=== PATIENT | female | born 1965 | race Asian ===

== ENCOUNTER 2019-07-15 12:25 | Emergency (ER) | payer MEDICAID ==
[~2019-07-15] VITALS: Ht 152.4 cm; Wt 49.4 kg
[~2019-07-15 12:25] MED LIST: ATOR20TA50 PO; CLOP75TA28 PO; ENAL10TA PO; FURO20TA3 PO; MET25T PO; POT10T PO; SILD20TA12; WARF5TAB PO
[2019-07-15 15:03] LABS: Basophils # (auto) 0.1 uL; Basophils % (auto) 1.2 % (0.0-2.0); Eosinophils # (auto) 0.3 uL; Eosinophils % (auto) 5.5 % (0.0-7.0); Hematocrit 35.6 % (36.0-46.0); Hemoglobin 12.1 g/dL (12.2-16.2); Lymphocytes # (auto) 2.2 uL; Lymphocytes % (auto) 39.3 % (10.0-50.0); Mean Corpuscular Hemoglobin 28.9 pg (28.0-32.0); Mean Corpuscular Hgb Conc. 33.9 g/dL (32.0-36.0); Mean Corpuscular Volume 85.2 fL (80.0-100.0); Monocytes # (auto) 0.4 uL; Monocytes % (auto) 7.5 % (0.0-12.0); Neutrophils # (auto) 2.6 uL; Neutrophils % (auto) 46.5 % (37.0-80.0); Nucleated Red Blood Cells % 0.1 %; Platelet Count (auto) 241 10^3/uL (140-450); Red Blood Cells 4.18 10^6/uL (4.0-5.20); Red Cell Distribution Width 15.4 % (11.8-14.3); White Blood Cell 5.5 10^3/uL (4.4-10.8)
[2019-07-15 15:18] LABS: Albumin 3.5 g/dL (3.4-5.0); Calcium 8.2 mg/dL (8.5-10.1); Potassium 3.9 mmol/L (3.5-5.1)
[2019-07-15 15:22] LABS: BUN/Creatinine Ratio 11.3; Bilirubin, Total 0.3 mg/dL (0.2-1.0); Partial Thromboplastin Time 63.2 sec (23.64-32.05); Total Protein 7.4 g/dL (6.4-8.2)
[2019-07-15 15:31] LABS: INR > 8.0 (0.9-1.15)
[2019-07-15 16:33] VITALS: BP 119/61
== END 2019-07-15 18:44 | disposition home or self-care (01) ==
LOC: ER 12:37
DX: I12.9 Hypertensive chronic kidney disease with stage 1 through stage 4 chronic kidney disease, or unspecified chronic kidney disease (principal); N18.9 Chronic kidney disease, unspecified; R06.02 Shortness of breath; R79.1 Abnormal coagulation profile; E78.5 Hyperlipidemia, unspecified; F17.210 Nicotine dependence, cigarettes, uncomplicated; I25.2 Old myocardial infarction; R42 Dizziness and giddiness; Z98.61 Coronary angioplasty status; Z88.2 Allergy status to sulfonamides; Z88.6 Allergy status to analgesic agent; Z79.899 Other long term (current) drug therapy
CPT/HCPCS: 36415; 71045; 80053; 85025; 85610; 85730; 93005; 94761

== ENCOUNTER 2021-05-11 04:46 | Emergency (ER) | payer MEDICAID ==
[~2021-05-11] VITALS: Ht 154.9 cm; Wt 45.8 kg
[~2021-05-11 04:46] MED LIST changes: -ENAL10TA PO; +ENAL10TA12 PO
[2021-05-11] MEDS ORDERED: HYDROcodone-ACET 5/325MG TAB PO ONE (08:45)
[2021-05-11 09:13] VITALS: BP 130/74
== END 2021-05-11 09:30 | disposition home or self-care (01) ==
LOC: ER 04:46 → EDBD 04:46 → ER 09:30
DX: M51.36 Other intervertebral disc degeneration, lumbar region (principal); F17.210 Nicotine dependence, cigarettes, uncomplicated; Z79.01 Long term (current) use of anticoagulants; Z79.899 Other long term (current) drug therapy; Z88.2 Allergy status to sulfonamides; Z88.5 Allergy status to narcotic agent
CPT/HCPCS: 72131; 93971

== ENCOUNTER 2023-02-04 12:40 | Inpatient (IN) | payer MEDICAID ==
[~2023-02-04] VITALS: Ht 154.9 cm; Wt 51.0 kg
[~2023-02-04 12:40] MED LIST changes: -ENAL10TA12 PO; +ENAL1TAB46 PO
[2023-02-04 13:46] LABS: Mean Corpuscular Hemoglobin 26.6 pg (28.0-32.0); Mean Corpuscular Hgb Conc. 31.4 g/dL (32.0-36.0)
[2023-02-04 13:48] LABS: Hematocrit 34.6 % (36.0-46.0); Hemoglobin 10.9 g/dL (12.2-16.2); Mean Corpuscular Volume 84.5 fL (80.0-100.0); Red Blood Cells 4.09 10^6/uL (4.0-5.20); Red Cell Distribution Width 15.4 % (11.8-14.3); White Blood Cell 6.6 10^3/uL (4.4-10.8)
[2023-02-04 14:03] LABS: Band Neutrophils % (manual) 0; Basophils % (manual) 0 (0.0-2.0); Blast Cells 0; Metamyelocytes % 0; Myelocytes % 0; Promyelocytes % 0; Reactive Lymphocytes 0
[2023-02-04 14:10] LABS: Calcium 8.6 mg/dL (8.5-10.1)
[2023-02-04 14:27] LABS: Albumin 3.7 g/dL (3.4-5.0); BUN/Creatinine Ratio 16.8 (10.0-20.0); Bilirubin, Total 0.2 mg/dL (0.2-1.0); Total Protein 6.7 g/dL (6.4-8.2)
[2023-02-04 14:44] LABS: Potassium 6.4 mmol/L (3.5-5.1)
[2023-02-04 14:47] LABS: Eosinophils % (manual) 17 (0-7); Lymphocytes % (manual) 40 (10.0-50.0); Monocytes % (manual) 4 (0-12)
[2023-02-04 14:56] LABS: Urine Bacteria NONE SEEN /hpf (None Seen); Urine Blood Negative /uL (Negative); Urine Hyaline Cast MOD /lpf (0 - 2); Urine Specific Gravity 1.011 (1.001-1.035); Urine WBC 5 /hpf (0 - 5)
[2023-02-04] MEDS ORDERED: SODIUM BICARBONATE 8.4% INJ 50ML SYRINGE IV ONE (15:00)
[2023-02-04] MEDS ORDERED: ENOXAPARIN SOD 60 MG/0.6 ML SYRINGE SC ONE (15:00)
[2023-02-04] MEDS ORDERED: FUROSEMIDE 20 MG/2 ML VIAL IV ONE (15:00)
[2023-02-04] MEDS ORDERED: ALBUTEROL SULF 2.5 MG/0.5ML(0.5%) NEB SOLN NEB ONE (15:00)
[2023-02-04] MEDS ORDERED: DEXTROSE (50%) 50ML SYRG IV ONE (15:00)
[2023-02-04] MEDS ORDERED: CALCIUM GLUC 1,000mg/50ml-NS 50 ML IV ONE (15:00)
[2023-02-04] MEDS ORDERED: InsuLIN REG 1unit/0.01ml Soln (100units/ml) IV ONE (15:00)
[2023-02-04] MEDS ORDERED: SODIUM ZIRCONIUM CYCL 10 GM PAK PO ONE (15:00)
[2023-02-04] MEDS ORDERED: DEXTROSE 10% 250 ML IV ONE (15:33)
[2023-02-04 19:00] VITALS: BP 86/34
[2023-02-04] MEDS ORDERED: MORPHINE SULFATE INJ 2 MG/ml SYRG IV PRN ×2 (19:00)
[2023-02-04] MEDS ORDERED: NITROGLYCERIN 0.4 MG SL TAB SL PRN (19:00)
[2023-02-04] MEDS ORDERED: ALBUTEROL SULF 2.5 MG/0.5ML(0.5%) NEB SOLN NEB PRN (19:15)
[2023-02-04] MEDS ORDERED: cefTRIAXone 1GM/50ML D5W 50 ML IV ONE (19:15)
[2023-02-04] MEDS ORDERED: PANTOPRAZOLE 40 MG TAB PO ONE (19:45)
[2023-02-04] MEDS: MORPHINE SULFATE INJ 2 MG/ml SYRG IV PRN (20:01)
[2023-02-04] MEDS ORDERED: AZITHROMYCIN 500MG/ 250ML 250 ML IV ONE (20:15)
[2023-02-04 21:33] LABS: Alcohol, Urine < 3.0 mg/dL (0-10); Barbiturate Scree,Urine NEGATIVE (NEGATIVE); Cannabinoid Screen, Urine NEGATIVE (NEGATIVE)
[2023-02-04 21:41] LABS: Amphetamine Screen, Urine NEGATIVE (NEGATIVE); Benzodiazephine Screen, Urine NEGATIVE (NEGATIVE); Cocaine Screen, Urine NEGATIVE (NEGATIVE); Opiate Scree,Urine POSITIVE (NEGATIVE); Phencyclidine Screen, Urine NEGATIVE (NEGATIVE)
[2023-02-04] MEDS: IPRATROPIUM BROM 0.5 MG/2.5ML INH SOL NEB SCH (21:51)
[2023-02-04] MEDS: ALBUTEROL SULF 2.5 MG/0.5ML(0.5%) NEB SOLN NEB SCH (21:51)
[2023-02-04] MEDS: METOPROLOL TARTRATE 25 MG TAB PO SCH (22:00)
[2023-02-04] MEDS ORDERED: MAGNESIUM SULFATE 1GM/100ML 100 ML IV ONE (22:15)
[2023-02-04] MEDS ORDERED: SODIUM CHLORIDE 0.9% 500 ML IV ONE (22:15)
[2023-02-04] MEDS: ATORVASTATIN 20 MG TAB PO SCH (22:19)
[2023-02-04] MEDS: APIXABAN 5 MG TAB PO SCH (22:19)
[2023-02-04] MEDS ORDERED: NOREPINEPHRINE 8 MG/250ML KIT 250 ML IV ONE (23:48)
[2023-02-05] MEDS ORDERED: NOREPINEPHRINE 8 MG/250ML KIT 250 ML IV SCH
[2023-02-05] MEDS ORDERED: ALBUMIN 5% 250 ML IV ONE ×2 (00:25→00:57)
[2023-02-05] MEDS: ALBUTEROL SULF 2.5 MG/0.5ML(0.5%) NEB SOLN NEB SCH ×6 (01:54→21:59)
[2023-02-05] MEDS: IPRATROPIUM BROM 0.5 MG/2.5ML INH SOL NEB SCH ×6 (01:54→21:59)
[2023-02-05] MEDS: HYDROcodone-ACET 5/325MG TAB PO PRN ×2 (02:03→19:18)
[2023-02-05 07:00] LABS: Basophils # (auto) 0.1 10 ^3/uL (0-0.2); Basophils % (auto) 1.2 % (0.0-2.0); Eosinophils # (auto) 0.7 10 ^3/uL (0-0.8); Eosinophils % (auto) 13.7 % (0.0-7.0); Hematocrit 30.2 % (36.0-46.0); Hemoglobin 9.8 g/dL (12.2-16.2); Lymphocytes # (auto) 1.9 10 ^3/uL (0.4-5.4); Lymphocytes % (auto) 34.4 % (10.0-50.0); Mean Corpuscular Hemoglobin 27.3 pg (28.0-32.0); Mean Corpuscular Hgb Conc. 32.5 g/dL (32.0-36.0); Monocytes # (auto) 0.5 10 ^3/uL (0-1.3); Monocytes % (auto) 9.7 % (0.0-12.0); Neutrophils # (auto) 2.2 10 ^3/uL (1.6-8.6); Nucleated Red Blood Cells % 0.1 %; Red Blood Cells 3.59 10^6/uL (4.0-5.20); Red Cell Distribution Width 14.9 % (11.8-14.3); White Blood Cell 5.5 10^3/uL (4.4-10.8)
[2023-02-05 07:10] LABS: Albumin 3.4 g/dL (3.4-5.0)
[2023-02-05 07:14] LABS: BUN/Creatinine Ratio 17.7 (10.0-20.0); Bilirubin, Total 0.2 mg/dL (0.2-1.0); Total Protein 5.9 g/dL (6.4-8.2)
[2023-02-05 07:17] LABS: Potassium 6.6 mmol/L (3.5-5.1)
[2023-02-05] MEDS ORDERED: InsuLIN REG 1unit/0.01ml Soln (100units/ml) IV ONE (07:30)
[2023-02-05] MEDS ORDERED: SODIUM ZIRCONIUM CYCL 10 GM PAK PO ONE (07:30)
[2023-02-05] MEDS ORDERED: SODIUM BICARBONATE 8.4 % INJ 50ML VIAL IV ONE (07:30)
[2023-02-05] MEDS ORDERED: DEXTROSE (50%) 50ML SYRG IV ONE (07:30)
[2023-02-05] MEDS ORDERED: CALCIUM GLUC 1,000mg/50ml-NS 50 ML IV ONE (07:30)
[2023-02-05] MEDS ORDERED: DEXTROSE 10% 250 ML IV ONE (09:13)
[2023-02-05] MEDS ORDERED: DEXTROSE 10% 250 ML Bag IV ONE (09:45)
[2023-02-05] MEDS: cefTRIAXone 1GM/50ML D5W 50 ML IV SCH (10:19)
[2023-02-05] MEDS: AZITHROMYCIN 500MG/ 250ML 250 ML IV SCH (10:20)
[2023-02-05] MEDS: SILDENAFIL CITRATE 20 MG TAB PO SCH (10:21)
[2023-02-05] MEDS: APIXABAN 5 MG TAB PO SCH (10:21)
[2023-02-05] MEDS: CLOPIDOGREL BISULFATE 75 MG TAB PO SCH (10:21)
[2023-02-05] MEDS: ENALAPRIL MALEATE 2.5 MG TAB PO SCH (10:21)
[2023-02-05] MEDS: METOPROLOL TARTRATE 25 MG TAB PO SCH ×2 (10:22→22:19)
[2023-02-05] MEDS: PANTOPRAZOLE 40 MG TAB PO SCH (10:37)
[2023-02-05] MEDS: MORPHINE SULFATE INJ 2 MG/ml SYRG IV PRN (10:38)
[2023-02-05] MEDS ORDERED: SERT-206 PO (13:05)
[2023-02-05] MEDS ORDERED: GABA250S7 PO (13:05)
[2023-02-05] MEDS ORDERED: IODIXANOL 320MG/ML 100ML BTL IV ONE (14:07)
[2023-02-05] MEDS ORDERED: LIDOCAINE 2%HCL (LOCAL ANESTH.) INJ 20ML MDV ONE (14:07)
[2023-02-05] MEDS ORDERED: SODIUM CHLORIDE 0.9% 500 ML IV ONE (15:30)
[2023-02-05] MEDS: GABAPENTIN 300 MG CAP PO SCH ×2 (16:47→22:20)
[2023-02-05] MEDS: SODIUM ZIRCONIUM CYCL 10 GM PAK PO SCH ×2 (16:47→22:20)
[2023-02-05] MEDS: SERTRALINE HCL 50 MG TAB PO SCH (16:47)
[2023-02-05 18:22] LABS: BUN/Creatinine Ratio 16.1 (10.0-20.0); Calcium 8.4 mg/dL (8.5-10.1); Potassium 4.9 mmol/L (3.5-5.1)
[2023-02-05 22:00] VITALS: BP 117/61
[2023-02-05] MEDS: UPTRAVI 1600 MCG PO SCH (22:00)
[2023-02-05] MEDS: ATORVASTATIN 20 MG TAB PO SCH (22:20)
[2023-02-06 05:00] VITALS: BP 123/72
[2023-02-06] MEDS: IPRATROPIUM BROM 0.5 MG/2.5ML INH SOL NEB SCH ×5 (06:12→22:42)
[2023-02-06] MEDS: ALBUTEROL SULF 2.5 MG/0.5ML(0.5%) NEB SOLN NEB SCH ×5 (06:12→22:42)
[2023-02-06] MEDS: SODIUM ZIRCONIUM CYCL 10 GM PAK PO SCH ×2 (06:26→16:28)
[2023-02-06] MEDS: GABAPENTIN 300 MG CAP PO SCH ×3 (06:27→21:55)
[2023-02-06 08:45] VITALS: BP 124/73
[2023-02-06] MEDS: APIXABAN 5 MG TAB PO SCH ×2 (09:27→21:56)
[2023-02-06] MEDS: METOPROLOL TARTRATE 25 MG TAB PO SCH ×2 (09:28→21:56)
[2023-02-06] MEDS: SILDENAFIL CITRATE 20 MG TAB PO SCH (09:28)
[2023-02-06] MEDS: PANTOPRAZOLE 40 MG TAB PO SCH (09:29)
[2023-02-06] MEDS: CLOPIDOGREL BISULFATE 75 MG TAB PO SCH (09:29)
[2023-02-06] MEDS: ENALAPRIL MALEATE 2.5 MG TAB PO SCH (09:30)
[2023-02-06] MEDS: SERTRALINE HCL 50 MG TAB PO SCH (09:30)
[2023-02-06] MEDS: cefTRIAXone 1GM/50ML D5W 50 ML IV SCH (09:31)
[2023-02-06] MEDS: AZITHROMYCIN 500MG/ 250ML 250 ML IV SCH (11:27)
[2023-02-06] MEDS: UPTRAVI 1600 MCG PO SCH ×2 (11:28→21:58)
[2023-02-06] MEDS: HYDROcodone-ACET 5/325MG TAB PO PRN ×2 (11:39→20:30)
[2023-02-06 12:56] VITALS: BP 139/78
[2023-02-06 16:54] LABS: Basophils # (auto) 0.1 10 ^3/uL (0-0.2); Eosinophils # (auto) 0.1 10 ^3/uL (0-0.8); Eosinophils % (auto) 1.2 % (0.0-7.0); Hematocrit 32.4 % (36.0-46.0); Hemoglobin 10.6 g/dL (12.2-16.2); Lymphocytes # (auto) 1.6 10 ^3/uL (0.4-5.4); Lymphocytes % (auto) 21.6 % (10.0-50.0); Mean Corpuscular Hgb Conc. 32.6 g/dL (32.0-36.0); Mean Corpuscular Volume 82.7 fL (80.0-100.0); Monocytes # (auto) 0.5 10 ^3/uL (0-1.3); Monocytes % (auto) 6.5 % (0.0-12.0); Neutrophils # (auto) 5.1 10 ^3/uL (1.6-8.6); Neutrophils % (auto) 69.7 % (37.0-80.0); Nucleated Red Blood Cells % 0.1 %; Red Blood Cells 3.92 10^6/uL (4.0-5.20); White Blood Cell 7.4 10^3/uL (4.4-10.8)
[2023-02-06 16:59] VITALS: BP 134/81
[2023-02-06 17:16] LABS: Calcium 9.2 mg/dL (8.5-10.1); Potassium 5.2 mmol/L (3.5-5.1)
[2023-02-06] MEDS: ATORVASTATIN 20 MG TAB PO SCH (21:56)
[2023-02-06 22:00] VITALS: BP 138/83
[2023-02-06] MEDS ORDERED: SODIUM ZIRCONIUM CYCL 10 GM PAK PO SCH (22:00)
[2023-02-07] MEDS: HYDROcodone-ACET 5/325MG TAB PO PRN ×2 (02:08→11:32)
[2023-02-07] MEDS ORDERED: MORP15TA PO (03:04)
[2023-02-07 05:00] VITALS: BP 134/91
[2023-02-07] MEDS: MORPHINE SULFATE INJ 2 MG/ml SYRG IV PRN ×2 (05:03→09:47)
[2023-02-07] MEDS: GABAPENTIN 300 MG CAP PO SCH ×2 (05:49→16:05)
[2023-02-07 06:57] LABS: Urine Bacteria NONE SEEN /hpf (None Seen); Urine Blood Negative /uL (Negative); Urine Hyaline Cast FEW /lpf (0 - 2); Urine Specific Gravity 1.015 (1.001-1.035); Urine WBC <1 /hpf (0 - 5)
[2023-02-07] MEDS: ALBUTEROL SULF 2.5 MG/0.5ML(0.5%) NEB SOLN NEB SCH ×3 (07:18→14:32)
[2023-02-07] MEDS: IPRATROPIUM BROM 0.5 MG/2.5ML INH SOL NEB SCH ×3 (07:18→14:32)
[2023-02-07 07:19] LABS: Protein, Urine 27.5 mg/dL (0.0-11.9)
[2023-02-07 07:38] LABS: BUN/Creatinine Ratio 13.4 (10.0-20.0); Calcium 8.6 mg/dL (8.5-10.1); Potassium 4.9 mmol/L (3.5-5.1)
[2023-02-07] MEDS: cefTRIAXone 1GM/50ML D5W 50 ML IV SCH (08:31)
[2023-02-07] MEDS: ACETAMINOPHEN 325 MG TAB PO PRN ×2 (08:31→16:05)
[2023-02-07 09:00] VITALS: BP 149/95
[2023-02-07] MEDS: AZITHROMYCIN 500MG/ 250ML 250 ML IV SCH (09:46)
[2023-02-07] MEDS: CLOPIDOGREL BISULFATE 75 MG TAB PO SCH (09:50)
[2023-02-07] MEDS: SILDENAFIL CITRATE 20 MG TAB PO SCH (09:51)
[2023-02-07] MEDS: ENALAPRIL MALEATE 2.5 MG TAB PO SCH (09:51)
[2023-02-07] MEDS: PANTOPRAZOLE 40 MG TAB PO SCH (09:51)
[2023-02-07] MEDS: METOPROLOL TARTRATE 25 MG TAB PO SCH (09:51)
[2023-02-07] MEDS: SERTRALINE HCL 50 MG TAB PO SCH (09:51)
[2023-02-07] MEDS: APIXABAN 5 MG TAB PO SCH (09:52)
[2023-02-07] MEDS: UPTRAVI 1600 MCG PO SCH (09:52)
[2023-02-07] MEDS ORDERED: FURO20TA3 PO (12:02)
[2023-02-07] MEDS ORDERED: ATOR20TA50 PO (12:02)
[2023-02-07] MEDS ORDERED: CLOP75TA28 PO (12:02)
[2023-02-07] MEDS ORDERED: AZIT-81 PO (12:03)
[2023-02-07] MEDS ORDERED: CALCIUM CARB 500 MG CHEW TAB PO ONE (12:15)
[2023-02-07] MEDS ORDERED: CALCIUM CARB 500 MG CHEW TAB PO PRN (12:15)
[2023-02-07 13:00] VITALS: BP 121/83
[2023-02-07 16:54] VITALS: BP 99/79
[2023-02-07] MEDS ORDERED: APIXABAN 5 MG TAB PO SCH (22:00)
== END 2023-02-07 17:10 | disposition home or self-care (01) | DRG 425 ==
LOC: ER 12:40 → TELE 18:55 → TELE-CENTR 02-05 18:29
PROVIDERS: ADMIT Nurse Practitioner Family; ATTEND Internal Medicine
DX: E87.5 Hyperkalemia (principal); N17.0 Acute kidney failure with tubular necrosis; I27.20 Pulmonary hypertension, unspecified; I13.0 Hypertensive heart and chronic kidney disease with heart failure and stage 1 through stage 4 chronic kidney disease, or unspecified chronic kidney disease; J15.9 Unspecified bacterial pneumonia; D63.1 Anemia in chronic kidney disease; I48.20 Chronic atrial fibrillation, unspecified; I50.9 Heart failure, unspecified; E11.22 Type 2 diabetes mellitus with diabetic chronic kidney disease; N30.00 Acute cystitis without hematuria; E11.65 Type 2 diabetes mellitus with hyperglycemia; N18.32 Chronic kidney disease, stage 3b; E87.6 Hypokalemia; F17.210 Nicotine dependence, cigarettes, uncomplicated; K27.9 Peptic ulcer, site unspecified, unspecified as acute or chronic, without hemorrhage or perforation; Z79.01 Long term (current) use of anticoagulants; Z80.0 Family history of malignant neoplasm of digestive organs; Z82.49 Family history of ischemic heart disease and other diseases of the circulatory system; Z83.3 Family history of diabetes mellitus; Z88.5 Allergy status to narcotic agent; Z88.2 Allergy status to sulfonamides
CPT/HCPCS: 36415; 71045; 76775; 80048; 80053; 80307; 81001; 82570; 82962; 83036; 83930; 83970; 84100; 84132; 84156; 84300; 84484; 85007; 85025; 85027; 87086; 93005; 93306; 94640; 96361; 96365; 96366; 96367; 96375; 99291; G0378; J0696; J1815; Q9967